=== PATIENT | female | born 1970 | race Caucasian/White ===

== ENCOUNTER → 2016-10-12 | Outpatient (CLI) | payer OTHER ==
[2014-12-04 10:44] VITALS: BP 116/74
--- NOTE | 2016-10-12 12:09 | RAD ---
3 views of the lumbar spine without comparison for back pain for years, no known injury. Findings: There is no fracture or acute osseous or alignment abnormality of the lumbar spine. There are 6 fully formed lumbar vertebral bodies, constituting transitional anatomy. There is mild facet arthrosis at lower levels, and mild degenerative disc disease is seen at several levels. Normal lumbar lordosis. No spondylolisthesis. Impression: 1. No acute osseous or alignment abnormality. 2. Mild multilevel degenerative changes. 3. Transitional lumbosacral anatomy.
== END | disposition home or self-care (01) ==
LOC: RAD 10:07
PROVIDERS: ATTEND Surgery
DX: M47.896 Other spondylosis, lumbar region (principal); M51.36 Other intervertebral disc degeneration, lumbar region
CPT/HCPCS: 72100